=== PATIENT | female | born 1990 | race American Indian/Alaskan Native ===

== ENCOUNTER 2018-09-13 12:54 | Emergency (ER) | payer MEDICAID ==
[~2018-09-13] VITALS: Ht 172.7 cm; Wt 77.1 kg
--- NOTE | 2018-09-13 13:08 | NUR ---
Patient to ER bed 07 to gown for evaluation. Side rails up.
[2018-09-13 13:09] VITALS: BP_SYST 127
--- NOTE | 2018-09-13 13:15 | NUR ---
DR MORENO IN ROOM FOR EXAM.
[2018-09-13 13:47] LABS: HEMATOCRIT 42.7 % (36-48); HEMOGLOBIN 14.5 g/dL (12.0-16.0); MEAN CORPUSCULAR HEMOGLOBIN 31 pg (27-31); MEAN CORPUSCULAR VOLUME 91 fL (79.0-98.0); RED BLOOD CELL COUNT(AUTO) 4.68 MIL/uL (4.2-6.2); WHITE BLOOD COUNT (AUTO) 6.7 K/uL (4.8-10.8)
[2018-09-13 13:48] LABS: BASOPHILS % (AUTO) 0.6 % (0.0-2.0); EOSINOPHILS # (AUTO) 0.1 K/uL (0.0-0.4); EOSINOPHILS % (AUTO) 1.7 % (0.0-4.0); LYMPHOCYTES # (AUTO) 1.6 K/uL (1.0-5.5); LYMPHOCYTES % (AUTO) 23.4 % (20.5-51.5); MEAN CORPUSCULAR HGB CONC 34 % (32-36); MONOCYTES # (AUTO) 0.4 K/uL (0.0-1.0); MONOCYTES % (AUTO) 5.9 % (1.7-9.3); NEUTROPHILS # (AUTO) 4.6 K/uL (1.8-7.7); NEUTROPHILS % (AUTO) 68.4 % (40.0-70.0); PLATELET COUNT (AUTO) 380 K/uL (130-430)
[2018-09-13 13:51] LABS: CALCIUM 8.7 mg/dL (8.4-11.0); CREATININE 0.64 mg/dL (0.55-1.30); POTASSIUM 3.5 mmol/L (3.5-5.1)
--- NOTE | 2018-09-13 13:51 | NUR ---
PT COMES TO ER WITH C/O LOWER ABD PAIN/CRAMPING. REPORTS BEING APPROX 11 WEEKS . REPORTS SPOTTING, DENIES DYSURIA. NO FEVERS/CHILLS. RESP EVEN AND UNLABORED, ON RA@ 98%. ABD SOFT, NON TENDER, +BS X 4 QUADS. 7, PARA 1
[2018-09-13 14:01] LABS: ALBUMIN 3.9 g/dL (3.4-4.8); TOTAL BILIRUBIN 0.6 mg/dL (0.0-1.0)
[2018-09-13 14:18] LABS: BILIRUBIN,URINE NEGATIVE (NEGATIVE); CLARITY/URINE CLEAR (CLEAR); COLOR,URINE YELLOW (YELLOW); GLUCOSE,URINE NEGATIVE (NEGATIVE); KETONES,URINE 1+ (NEGATIVE); LEUKOCYTE ESTERASE ,URINE NEGATIVE (NEGATIVE); NITRITE, URINE NEGATIVE (NEGATIVE); PROTEIN URINE NEGATIVE (NEGATIVE); UROBILINOGEN,URINE 0.2 (0.2-1.0)
[2018-09-13 14:28] LABS: BLOOD, URINE TRACE (NEGATIVE)
[2018-09-13 14:30] LABS: BACTERIA,URINE RARE /HPF (None Seen); MUCUS,URINE 1+ /LPF (None Seen); RBC,URINE 0-3 /HPF (0-3); WBC,URINE 0-3 /HPF (0-3)
--- NOTE | 2018-09-13 14:38 | NUR ---
PT TO US
--- NOTE | 2018-09-13 15:02 | NUR ---
PT BACK FROM US.
--- NOTE | 2018-09-13 15:58 | NUR ---
Patient given written and verbal discharge instructions and verbalizes understanding. ER MD discussed with patient the results and treatment provided. Patient in stable condition. ID arm band removed. for questions provided and answered. Medication side effect fact sheet provided.
[2018-09-13 16:15] VITALS: BP_SYST 133
== END 2018-09-13 15:58 | disposition home or self-care (01) ==
LOC: SED 12:54
DX: O20.0 Threatened abortion (principal); Z90.49 Acquired absence of other specified parts of digestive tract; Z90.89 Acquired absence of other organs; Z88.2 Allergy status to sulfonamides; Z88.0 Allergy status to penicillin; Z88.8 Allergy status to other drugs, medicaments and biological substances; Z3A.01 Less than 8 weeks gestation of pregnancy
CPT/HCPCS: 36415; 76801; 76817; 80053; 81000-TC; 84702-TC; 85025; 86900; 86901; 99284